=== PATIENT | male | born 2000 | race Caucasian/White ===

== ENCOUNTER 2022-04-18 00:19 | Emergency (ER) | payer MEDICAID ==
[~2022-04-18] VITALS: Ht 165.1 cm; Wt 90.7 kg
[2022-04-18] MEDS ORDERED: HALOPERIDOL LACTATE 5 MG/1 ML VIAL IV ONE (00:30)
[2022-04-18] MEDS ORDERED: LORAZEPAM 2 MG/1 ML VIAL IV ONE ×2 (00:30→00:45)
[2022-04-18] MEDS ORDERED: IV NORMAL SALINE 1000 ML BAG IV ONE (00:30)
[2022-04-18] MEDS ORDERED: ONDANSETRON 4 MG/2 ML VIAL IV ONE (00:30)
--- NOTE | 2022-04-18 00:31 | NUR ---
Dr Ruiz at bedside. MSE in progress
[2022-04-18] MEDS ORDERED: HALOPERIDOL LACTATE 5 MG/1 ML VIAL ONE (00:46)
[2022-04-18] MEDS ORDERED: ONDANSETRON 4 MG/2 ML VIAL ONE (00:46)
[2022-04-18] MEDS ORDERED: LORAZEPAM 2 MG/1 ML VIAL ONE (00:47)
[2022-04-18 00:58] LABS: HEMATOCRIT 49.6 % (36.7-47.1); MEAN CORPUSCULAR HEMOGLOBIN 30.5 uug (23.8-33.4); MEAN CORPUSCULAR VOLUME 87.8 fL (73.0-96.2); PLATELET COUNT (AUTO) 162 K/uL (152-348)
[2022-04-18 01:01] LABS: CREATININE 0.8 mg/dL (0.6-1.3)
[2022-04-18 01:06] LABS: BILIRUBIN,TOTAL 0.5 mg/dL (0.2-1.0); TOTAL PROTEIN, SERUM 8.6 g/dL (6.4-8.2)
--- NOTE | 2022-04-18 02:00 | NUR ---
Patient pulled out IV
--- NOTE | 2022-04-18 02:03 | NUR ---
IV saline lock reinserted
--- NOTE | 2022-04-18 06:30 | NUR ---
Diomedes Alcazar patient's brother
--- NOTE | 2022-04-18 07:00 | NUR ---
patient recieved from [facility] in stable condition.
--- NOTE | 2022-04-18 07:10 | NUR ---
Hand off to Delia ABRAHAM
--- NOTE | 2022-04-18 07:20 | NUR ---
patient is awake and alert, i called brother Diomedes to bean picker patient from ER department. discharge pending.
--- NOTE | 2022-04-18 08:08 | NUR ---
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 IV removed and prerssure dressing applied. Patient discharged to home in stable condition. Written and verbal after care instructions given. Patient verbalizes understanding of instructions. Stressed follow up or return to ER for worsening s/s.
== END 2022-04-18 08:11 | disposition home or self-care (01) ==
LOC: ER 00:29
DX: T40.991A Poisoning by other psychodysleptics [hallucinogens], accidental (unintentional), initial encounter (principal); R46.2 Strange and inexplicable behavior; R00.0 Tachycardia, unspecified; Y92.149 Unspecified place in prison as the place of occurrence of the external cause; E86.0 Dehydration; R73.9 Hyperglycemia, unspecified
CPT/HCPCS: 99285; 96374; 96361; 96375; 80053; 85025; 36415; 93005; J1630; J2060; J2405; J7040; A4663